=== PATIENT | male | born 1960 | race Caucasian/White ===

== ENCOUNTER 2016-09-22 09:15 | Outpatient (CLI) | payer BC ==
[2016-09-22 19:07] LABS: BASOPHILS # (AUTO) 0.1 10^3/uL (0.0-0.1); BASOPHILS % (AUTO) 1.3 %; EOSINOPHILS # (AUTO) 0.4 10^3/uL (0.0-0.7); HCT - HEMATOCRIT 46.4 % (42.0-52.0); HGB - HEMOGLOBIN 15.3 g/dL (14.0-18.0); LYMPHOCYTES # (AUTO) 3.4 10^3/uL (1.5-3.5); LYMPHOCYTES % (AUTO) 45.2 %; MEAN CORPUSCULAR HEMOGLOBIN 29.4 pg (27.0-31.0); MEAN CORPUSCULAR HGB CONC 32.9 g/dL (32.0-36.0); MEAN CORPUSCULAR VOLUME 89.5 fL (80.0-94.0); MEAN PLATELET VOLUME 7.8 fL (7.4-11.4); MONOCYTES # (AUTO) 0.5 10^3/uL (0.0-1.0); MONOCYTES % (AUTO) 7.1 %; NEUTROPHILS # (AUTO) 3.1 10^3/uL (1.5-6.6); NEUTROPHILS % (AUTO) 41.4 %; NUCLEATED RED BLOOD CELLS AUTO 0.1 /100WBC; RED BLOOD COUNT 5.18 10^6/uL (4.70-6.10); RED CELL DISTRIBUTION WIDTH 13.6 % (12.0-15.0); UNCORRECTED WHITE BLOOD COUNT 7.5 x10^3/uL; WHITE BLOOD COUNT 7.5 x10^3/uL (4.8-10.8)
[2016-09-22 19:17] LABS: ALBUMIN/GLOBULIN RATIO 1.6 (1.0-2.2); BILIRUBIN,TOTAL 0.9 mg/dL (0.2-1.0); BUN - BLOOD UREA NITROGEN 21 mg/dL (6-20); CALCIUM 9.5 mg/dL (8.5-10.3); CARBON DIOXIDE - CO2 27 mmol/L (21-32); CHLORIDE 103 mmol/L (101-111); CHOL/HDL RATIO 3.6 (<5.0); CHOLESTEROL 182 mg/dL; GFR - MDRD 78 (>89); GLUCOSE 122 mg/dL (70-100); HDL CHOLESTEROL 51 mg/dL; LDL/HDL RATIO 2.2 (<3.6); POTASSIUM 4.6 mmol/L (3.5-5.0); SODIUM 137 mmol/L (135-145); TOTAL PROTEIN 7.6 g/dL (6.7-8.2); TRIGLYCERIDES 87 mg/dL; VLDL CHOLESTEROL 17 mg/dL
[2016-09-22 20:02] LABS: HEMOGLOBIN A1C 0.79 g/dL
== END 2016-09-22 09:16 | disposition home or self-care (01) ==
LOC: LAB.F 09:15
PROVIDERS: ATTEND Physician Assistant Medical
DX: I10 Essential (primary) hypertension (principal); Z13.89 Encounter for screening for other disorder; E55.9 Vitamin D deficiency, unspecified; E11.9 Type 2 diabetes mellitus without complications
CPT/HCPCS: 36415; 80053; 80061; 82306; 83036; 85025

== ENCOUNTER 2016-12-02 06:03 | Day surgery (SDC) | payer BC ==
[2016-12-02] MEDS ORDERED: LACTATED RINGERS 1,000 ML IV ONE (06:47)
[2016-12-02] MEDS ORDERED: MIDAZOLAM 2 MG/2 ML VIAL IVP ONE (07:38)
[2016-12-02] MEDS ORDERED: fentaNYL 100 MCG/2 ML VIAL IVP ONE (07:38)
[2016-12-02 08:39] VITALS: BP 105/70
== END 2016-12-02 06:04 | disposition home or self-care (01) ==
LOC: SDS 06:03
PROVIDERS: ATTEND Surgery
PROC: 0DJD8ZZ Inspection of Lower Intestinal Tract, Via Natural or Artificial Opening Endoscopic (ICD-10-PCS; principal; 2016-12-02 07:30)
DX: Z86.010 Personal history of colon polyps (principal); I10 Essential (primary) hypertension; E11.9 Type 2 diabetes mellitus without complications; F41.9 Anxiety disorder, unspecified; Z79.82 Long term (current) use of aspirin; Z79.84 Long term (current) use of oral hypoglycemic drugs
CPT/HCPCS: 45378; J7120

== ENCOUNTER 2017-10-21 08:08 | Outpatient (CLI) | payer BC ==
[2017-10-21 10:35] LABS: HGB - HEMOGLOBIN 15.6 g/dL (14.0-18.0); MEAN CORPUSCULAR HGB CONC 34.2 g/dL (32.0-36.0); MEAN CORPUSCULAR VOLUME 87.9 fL (80.0-94.0); MEAN PLATELET VOLUME 7.8 fL (7.4-11.4); RED BLOOD COUNT 5.21 10^6/uL (4.70-6.10); RED CELL DISTRIBUTION WIDTH 13.6 % (12.0-15.0); WHITE BLOOD COUNT 8.2 x10^3/uL (4.8-10.8)
[2017-10-21 10:53] LABS: ALBUMIN 4.3 g/dL (3.2-5.5); ALBUMIN/GLOBULIN RATIO 1.4 (1.0-2.2); ALKALINE PHOSPHATASE 44 IU/L (42-121); ALT ALANINE AMINOTRANSFERASE 23 IU/L (10-60); AST ASPARTATE AMINOTRANSFERASE 24 IU/L (10-42); BILIRUBIN,TOTAL 0.7 mg/dL (0.2-1.0); BUN - BLOOD UREA NITROGEN 25 mg/dL (6-20); CALCIUM 9.2 mg/dL (8.5-10.3); CARBON DIOXIDE - CO2 25 mmol/L (21-32); CHLORIDE 103 mmol/L (101-111); CHOL/HDL RATIO 3.9 (<5.0); CHOLESTEROL 188 mg/dL; CREATININE 1.2 mg/dL (0.6-1.2); GFR - MDRD 63 (>89); GLUCOSE 148 mg/dL (70-100); HDL CHOLESTEROL 48 mg/dL; LDL CHOLESTEROL,CALCULATED 106 mg/dL; LDL/HDL RATIO 2.2 (<3.6); SODIUM 136 mmol/L (135-145); TOTAL PROTEIN 7.4 g/dL (6.7-8.2); VLDL CHOLESTEROL 34 mg/dL
[2017-10-21 11:03] LABS: HEMOGLOBIN A1C 0.92 g/dL; HEMOGLOBIN A1C % 7.1 % (4.6-6.2)
== END 2017-10-21 08:09 | disposition home or self-care (01) ==
LOC: LAB.F 08:08
PROVIDERS: ATTEND Physician Assistant Medical
DX: I10 Essential (primary) hypertension (principal); Z13.89 Encounter for screening for other disorder; E11.9 Type 2 diabetes mellitus without complications; Z12.5 Encounter for screening for malignant neoplasm of prostate
CPT/HCPCS: 36415; 80053; 80061; 82043; 83036; 83721; 84153; 85025; 85027

== ENCOUNTER 2020-07-01 12:51 | Emergency (ER) | payer BC ==
[2020-07-01 13:13] VITALS: BP 146/82
[2020-07-01] MEDS ORDERED: SULFAMETH/TRIMETH DS 800/160 MG TABLET PO STA (13:23)
[2020-07-01] MEDS ORDERED: cephALEXin 250 MG CAPSULE PO STA (13:23)
--- NOTE | 2020-07-01 13:26 | ED Physician Documentation ---
PD HPI WOUND RECHECK - Stated complaint Stated Complaint: SPIDER BITE RT HAND - Chief complaint Chief Complaint: Wound - Histroy obtained from History obtained from: Patient - Additional information Additional information: About 3 nights ago he was awoken in the middle of the night with a burning pain to the right hand which she presumed was a spider bite although no spider was seen. Since then he has had progressive albeit still not too bad pain with some mild myalgias and some spreading redness up towards the wrist. He has a couple of other lesions on that hand which she ascribes to minor trauma. Review of Systems Constitutional: reports: Chills. denies: Fever Respiratory: reports: Reviewed and negative GI: reports: Reviewed and negative : reports: Reviewed and negative PD PAST MEDICAL HISTORY - Past Medical History Cardiovascular: Hypertension Respiratory: None Endocrine/Autoimmune: Type 2 diabetes GI: Colon polyps : None HEENT: Chronic vision loss Psych: Anxiety Musculoskeletal: None Derm: None - Past Surgical History General: Colonoscopy HEENT: Other - Present Medications Home Medications: Ambulatory Orders Medication Instructions Recorded Confirmed Aspirin 81 mg PO DAILY 10/12/15 12/02/16 Lisinopril 20 mg PO DAILY 10/12/15 12/02/16 [id number] CD [Cardizem Cd] 180 mg PO DAILY 10/12/15 12/02/16 Metformin HCl 1,000 mg PO BID 12/01/16 12/02/16 Multivitamin [Multiple Vitamins] 1 each PO DAILY 12/01/16 12/02/16 Mupirocin 2% Oint [Bactroban 2% 1 applic TOP BID #50 gm 07/01/20 Oint] Sulfamethox/Trimeth 800/160 1 each PO BID #14 tablet 07/01/20 [Bactrim Ds 800/160] cephALEXin [Keflex] 500 mg PO Q6H #28 cap 07/01/20 - Allergies Allergies/Adverse Reactions: Allergies Allergy/AdvReac Type Severity Reaction Status Date / Time codeine Allergy Unknown Verified 07/01/20 13:13 - Social History Smoking Status: Never smoker PD ED PE NORMAL - Vitals Vital signs reviewed: Yes - General General: Alert and oriented X 3, No acute distress - Neuro Neuro: Alert and oriented X 3, Normal speech - Psych Psych: Normal mood, Normal affect PD ED PE EXPANDED - Extremities BRITTANY UE/Hands Visual: 1 - abscess (Purulent open wound, small, cultured) 2 - rash (nonpurulent v small ulcer) 3 - rash (dime-sized ulcer, not purulent) 4 - rash (rodney sized ulcer, not purulent) Results - Vitals Vitals: Vital Signs - 24 hr 07/01/20 13:09 Temperature 37.4 C Heart Rate 109 H Respiratory 16 Rate Blood Pressure 146/82 H O2 Saturation 99 Oxygen O2 Source Room air Departure - Departure Disposition: Home, Self Care Clinical Impression: Skin infection, bacterial Condition: Good Record reviewed to determine appropriate education?: Yes Instructions: ED Infec Skin Cellulitis Prescriptions: Sulfamethox/Trimeth 800/160 [Bactrim Ds 800/160] 1 each PO BID #14 tablet Mupirocin 2% Oint [Bactroban 2% Oint] 1 applic TOP BID #50 gm cephALEXin [Keflex] 500 mg PO Q6H #28 cap Comments: We are performing a wound culture, the results should be done in 48-72 hours. If antibiotic change is necessary we will call you. Return if worse in the meantime, especially if you develop increased pain, fevers, cannot keep down the medication. Otherwise follow-up with your physician in approximately 2-3 days.
== END 2020-07-01 13:43 | disposition home or self-care (01) ==
LOC: ED 12:51
DX: L08.9 Local infection of the skin and subcutaneous tissue, unspecified (principal); B96.89 Other specified bacterial agents as the cause of diseases classified elsewhere; I10 Essential (primary) hypertension; E11.9 Type 2 diabetes mellitus without complications; Z79.84 Long term (current) use of oral hypoglycemic drugs
CPT/HCPCS: 87070; 87077; 87181; 87205; 99283; A9270

== ENCOUNTER 2021-07-21 13:07 | Emergency (ER) | payer BC ==
[2021-07-21] MEDS ORDERED: SODIUM CHLORIDE 0.9% 1,000 ML IV STA (13:21)
[2021-07-21] MEDS ORDERED: INSULIN REGULAR HUMAN 100 UNIT in SODIUM CHLORIDE 0.9% 100ML 99 ML IV STA (13:21)
[2021-07-21] MEDS ORDERED: INSULIN REGULAR HUMAN 100 UNIT/1 ML 10 ML MDV IVP STA (13:22)
--- NOTE | 2021-07-21 13:24 | ED Physician Documentation ---
PD HPI ALTERED MENTAL STATUS - Stated complaint Stated Complaint: AMS - History obtained from History obtained from: Patient, Family - History of Present Illness Timing - onset: How many days ago (5) Timing - duration: Days (5) Timing - details: Gradual onset, Still present Quality / character: Less responsive, Confused, Disoriented, Agitated Associated symptoms: Dyspnea, General weakness Contributing factors: Diabetic Basline status: Alert and oriented X 3, Ambulatory, Independent Similar symptoms before: Has not had sx before Recently seen: Not recently seen - Additional information Additional information: 61-year-old Elijah Carrier is a type II diabetic male who was brought to the hospital by his father with altered mental status. The father states that 5 days ago he began to have a decreased interaction. He has been drinking lots of fluids he has not had anything to eat. He has become less responsive and he has been breathing hard. The father was concerned about the possibility of COVID. He and his son are unimmunized. The patient is unable to contribute much to the history. Review of Systems Unable to obtain: AMS, Confused Constitutional: denies: Fever Respiratory: reports: Dyspnea GI: denies: Vomiting PD PAST MEDICAL HISTORY - Past Medical History Cardiovascular: Hypertension Respiratory: None Endocrine/Autoimmune: Type 2 diabetes GI: Colon polyps : None HEENT: Chronic vision loss Psych: Anxiety Musculoskeletal: None Derm: None - Past Surgical History General: Colonoscopy HEENT: Other - Present Medications Home Medications: Ambulatory Orders Medication Instructions Recorded Confirmed Aspirin 81 mg PO DAILY 10/12/15 12/02/16 Lisinopril 20 mg PO DAILY 10/12/15 12/02/16 [id number] CD [Cardizem Cd] 180 mg PO DAILY 10/12/15 12/02/16 Metformin HCl 1,000 mg PO BID 12/01/16 12/02/16 Multivitamin [Multiple Vitamins] 1 each PO DAILY 12/01/16 12/02/16 Mupirocin 2% Oint [Bactroban 2% 1 applic TOP BID #50 gm 07/01/20 Oint] Sulfamethox/Trimeth 800/160 1 each PO BID #14 tablet 07/01/20 [Bactrim Ds 800/160] cephALEXin [Keflex] 500 mg PO Q6H #28 cap 07/01/20 - Allergies Allergies/Adverse Reactions: Allergies Allergy/AdvReac Type Severity Reaction Status Date / Time codeine Allergy Unknown Verified 07/21/21 13:26 - Social History Smoking Status: Never smoker PD ED PE NORMAL - Vitals Vital signs reviewed: Yes (tachy, tachypneic hypertensive and cold) - General General: Other (pale appearing 61 y/o M laying supine breathing heavily with lid ptosis bilat. 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, No motor deficit, No sensory deficit, Other (dysarthric speech secondary to dry mucous membranes ) Eye Opening: To Voice Motor: Obeys Commands Verbal: Confused GCS Score: 13 Results - Vitals Vitals: Vital Signs - 24 hr 07/21/21 07/21/21 07/21/21 13:23 13:56 14:26 Temperature Heart Rate 149 H 126 H 88 Respiratory 26 H 13 28 H Rate Blood Pressure 165/77 H 151/77 H 97/55 L O2 Saturation 100 100 100 07/21/21 07/21/21 07/21/21 14:30 15:00 16:00 Temperature 34.5 C L 34.7 C L Heart Rate 95 105 H 119 H Respiratory 18 28 H 25 H Rate Blood Pressure 106/63 106/63 102/56 L O2 Saturation 100 100 100 07/21/21 16:30 Temperature 34.6 C L Heart Rate 110 H Respiratory 28 H Rate Blood Pressure 106/58 L O2 Saturation 98 Oxygen O2 Source Room air - EKG (time done) 1324 Rate: Rate (enter#) (149) Rhythm: Atrial flutter Ischemia: Other (diffuse abnormal T) Compare to prior EKG: Old EKG unavailable Computer interpretation: Agree with computer - Labs Labs: Laboratory Tests 07/21/21 07/21/21 07/21/21 13:15 13:15 13:15 WBC 22.7 H RBC 5.39 Hgb 16.2 Hct 52.3 H MCV 97.0 H MCH 30.1 MCHC 31.0 L RDW 13.1 Plt Count 351 MPV 9.5 Neut # (Auto) 17.3 H Lymph # (Auto) 1.3 L [place] # (Auto) 2.7 H Eos # (Auto) 0.0 Baso # (Auto) 0.1 Absolute Nucleated RBC 0.00 Nucleated RBC % 0.0 Manual Slide Review Indicated RBC Morph Micro Appear 1+ ANISOCYTOSIS VBG pH VBG pCO2 VBG pO2 VBG HCO3 VBG Total CO2 VBG O2 Saturation VBG Base Excess Sodium 129 L Potassium 2.9 L Chloride 94 L Carbon Dioxide < 6 L* Anion Gap 29.0 H BUN 57 H Creatinine 2.3 H Estimated GFR (MDRD) 29 L Glucose 1106 H* Lactic Acid 5.6 H* Calcium 10.6 H Total Bilirubin 1.7 H AST 21 ALT 23 Alkaline Phosphatase 127 H Total Protein 8.3 H Albumin 3.9 Globulin 4.4 H Albumin/Globulin Ratio 0.9 L Lipase 64 H Urine Color Urine Clarity Urine pH Ur Specific [place] Urine Protein Urine Glucose (UA) Urine Ketones Urine Occult Blood Urine Nitrite Urine Bilirubin Urine Urobilinogen Ur Leukocyte Esterase Urine RBC Urine WBC Ur Squamous Epith Cells Urine Bacteria Urine Casts Ur Microscopic Review Urine Culture Comments Nasal Adenovirus (PCR) Nasal B. parapertussis DNA (PCR) Nasal Coronavir 229E PCR Nasal Coronavir HKU1 PCR Nasal Coronavir NL63 PCR Nasal Coronavir OC43 PCR Nasal Enterovir/Rhinovir PCR Nasal Influenza B PCR Nasal Influenza A PCR Nasal Parainfluen 1 PCR Nasal Parainfluen 2 PCR Nasal Parainfluen 3 PCR Nasal Parainfluen 4 PCR Nasal RSV (PCR) Nasal B.pertussis DNA PCR Nasal C.pneumoniae (PCR) He Human Metapneumo PCR Nasal M.pneumoniae (PCR) Nasal SARS-CoV-2 (PCR) Urine Opiates Screen Ur Oxycodone Screen Urine Methadone Screen Ur Propoxyphene Screen Ur Barbiturates Screen Ur Tricyclics Screen Ur Phencyclidine Scrn Ur Amphetamine Screen U Methamphetamines Scrn U Benzodiazepines Scrn Urine Cocaine Screen U Cannabinoids Screen Serum Ketones SMALL H 07/21/21 07/21/21 07/21/21 13:15 13:15 14:35 WBC RBC Hgb Hct MCV MCH MCHC RDW Plt Count MPV Neut # (Auto) Lymph # (Auto) [place] # (Auto) Eos # (Auto) Baso # (Auto) Absolute Nucleated RBC Nucleated RBC % Manual Slide Review RBC Morph Micro Appear VBG pH 6.778 L VBG pCO2 21.1 L VBG pO2 60.9 H VBG HCO3 3.1 L VBG Total CO2 3.7 L VBG O2 Saturation 86.1 H VBG Base Excess -31.8 L Sodium Potassium Chloride Carbon Dioxide Anion Gap BUN Creatinine Estimated GFR (MDRD) Glucose Lactic Acid Calcium Total Bilirubin AST ALT Alkaline Phosphatase Total Protein Albumin Globulin Albumin/Globulin Ratio Lipase Urine Color YELLOW Urine Clarity HAZY Urine pH 5.5 Ur Specific [place] 1.020 Urine Protein 30 H Urine Glucose (UA) >=1000 H Urine Ketones 40 H Urine Occult Blood MODERATE H Urine Nitrite NEGATIVE Urine Bilirubin NEGATIVE Urine Urobilinogen 0.2 (NORMAL) Ur Leukocyte Esterase NEGATIVE Urine RBC 6-10 H Urine WBC 0-3 Ur Squamous Epith Cells RARE Squamous Urine Bacteria Rare Urine Casts 6-10 Granular Casts Ur Microscopic Review INDICATED Urine Culture Comments NOT INDICATED Nasal Adenovirus (PCR) NOT DETECTED Nasal B. parapertussis DNA (PCR) NOT DETECTED Nasal Coronavir 229E PCR NOT DETECTED Nasal Coronavir HKU1 PCR NOT DETECTED Nasal Coronavir NL63 PCR NOT DETECTED Nasal Coronavir OC43 PCR NOT DETECTED Nasal Enterovir/Rhinovir PCR NOT DETECTED Nasal Influenza B PCR NOT DETECTED Nasal Influenza A PCR NOT DETECTED Nasal Parainfluen 1 PCR NOT DETECTED Nasal Parainfluen 2 PCR NOT DETECTED Nasal Parainfluen 3 PCR NOT DETECTED Nasal Parainfluen 4 PCR NOT DETECTED Nasal RSV (PCR) NOT DETECTED Nasal B.pertussis DNA PCR NOT DETECTED Nasal C.pneumoniae (PCR) NOT DETECTED He Human Metapneumo PCR NOT DETECTED Nasal M.pneumoniae (PCR) NOT DETECTED Nasal SARS-CoV-2 (PCR) DETECTED A Urine Opiates Screen NEGATIVE Ur Oxycodone Screen NEGATIVE Urine Methadone Screen NEGATIVE Ur Propoxyphene Screen NEGATIVE Ur Barbiturates Screen NEGATIVE Ur Tricyclics Screen NEGATIVE Ur Phencyclidine Scrn NEGATIVE Ur Amphetamine Screen NEGATIVE U Methamphetamines Scrn NEGATIVE U Benzodiazepines Scrn NEGATIVE Urine Cocaine Screen NEGATIVE U Cannabinoids Screen NEGATIVE Serum Ketones 07/21/21 16:08 WBC RBC Hgb Hct MCV MCH MCHC RDW Plt Count MPV Neut # (Auto) Lymph # (Auto) [place] # (Auto) Eos # (Auto) Baso # (Auto) Absolute Nucleated RBC Nucleated RBC % Manual Slide Review RBC Morph Micro Appear VBG pH VBG pCO2 VBG pO2 VBG HCO3 VBG Total CO2 VBG O2 Saturation VBG Base Excess Sodium 128 L Potassium 1.5 L* Chloride 102 Carbon Dioxide < 6 L* Anion Gap 22.0 H BUN 56 H Creatinine 2.2 H Estimated GFR (MDRD) 31 L Glucose 1078 H* Lactic Acid Calcium 9.2 Total Bilirubin AST ALT Alkaline Phosphatase Total Protein Albumin Globulin Albumin/Globulin Ratio Lipase Urine Color Urine Clarity Urine pH Ur Specific [place] Urine Protein Urine Glucose (UA) Urine Ketones Urine Occult Blood Urine Nitrite Urine Bilirubin Urine Urobilinogen Ur Leukocyte Esterase Urine RBC Urine WBC Ur Squamous Epith Cells Urine Bacteria Urine Casts Ur Microscopic Review Urine Culture Comments Nasal Adenovirus (PCR) Nasal B. parapertussis DNA (PCR) Nasal Coronavir 229E PCR Nasal Coronavir HKU1 PCR Nasal Coronavir NL63 PCR Nasal Coronavir OC43 PCR Nasal Enterovir/Rhinovir PCR Nasal Influenza B PCR Nasal Influenza A PCR Nasal Parainfluen 1 PCR Nasal Parainfluen 2 PCR Nasal Parainfluen 3 PCR Nasal Parainfluen 4 PCR Nasal RSV (PCR) Nasal B.pertussis DNA PCR Nasal C.pneumoniae (PCR) He Human Metapneumo PCR Nasal M.pneumoniae (PCR) Nasal SARS-CoV-2 (PCR) Urine Opiates Screen Ur Oxycodone Screen Urine Methadone Screen Ur Propoxyphene Screen Ur Barbiturates Screen Ur Tricyclics Screen Ur Phencyclidine Scrn Ur Amphetamine Screen U Methamphetamines Scrn U Benzodiazepines Scrn Urine Cocaine Screen U Cannabinoids Screen Serum Ketones - Rads (name of study) chest Radiology: Prelim report reviewed (Impression portable chest within normal limits for age.), EMP read indepedently (On my read this patient who is significantly dehydrated appears to have bilateral interstitial infiltrate consistent with COVID and a right lower lobe infiltrate consistent with COVID- related pneumonia.), See rad report CT head Radiology: Prelim report reviewed (Impression: Unremarkable intracranial for age, without a cause of altered mental status identified.), EMP read indepedently, See rad report Procedures - IVC sono (time) 1330 Bedside IVC sono: IVC measures (cm) (0.86), IVC collapsed c insp (cm) (complete), Dehydration (est >2 liter deficit) PD MEDICAL DECISION MAKING - ED course Complexity details: reviewed old records, reviewed results, re-evaluated patient, considered differential, d/w patient, d/w family, d/w wedding consultant (anesthesia consulted for line placement. ) ED course: 61-year-old male with history of diabetes arrives with kussmal breathing and altered mental status is found to have diabetic ketoacidosis. IV saline is initiated a insulin drip is started at 4 units an hour after a 10 unit bolus. Volume is depleted at least 2 liters on interrogation of the IVC. The patient has aflutter with a rate of 160. After 1 L of saline is in the patient still has heart rate in the 160 range with atrial flutter. He is administered diltiazem 20 mg intravenously reduces his heart rate to right around 120 and he is subsequently administered a second dose of diltiazem 25 mg further lowering his heart rate. We do not have intensive care unit beds here today and we are searching for a hospital with an available intensive care bed for a diabetic with ketoacidosis and COVID. With the patient's cardiac irritability an infusion of a banana bag with magnesium is administered as well as a second line with intravenous potassium and a esqueda catheter. The anesthesiologist is consulted in the case for central line placement. He is cold to 34.5 and a bear hugger is placed. No bed available here, no bed available at local area hospitals. We were able to consult our friends at [facility] in [place] and they were able to come up with an intensive care unit bed. I was able to speak to Miranda Haque who recommended that we place a bicarb drip in 1 arm and saline with 20 units of potassium in the other arm for transport. The patient's potassium is now critically low at 1.5 and he is administered intravenous potassium through his central line by life flight crew. - Critical Care Time(min): 50 Time Includes: Direct patient care, Review records, Reassess patient, Document care, Coordinate care, Medical consult, Family consult for tx feb Data interpretation: Labs, ABG, CXR Procedures excluded from critical care time: EKG Departure - Departure Disposition: 02 Transfer Acute Care Hosp Clinical Impression: Atrial flutter with rapid ventricular response, COVID Diabetic keto-acidosis Qualifiers: Diabetes mellitus type: type 2 Diabetes mellitus complication detail: without coma Qualified Code(s): E11.10 - Type 2 diabetes mellitus with ketoacidosis without coma Condition: Critical Discharge Date/Time: 07/21/21 16:50
[2021-07-21 13:31] LABS: VBG BASE EXCESS -31.8 mmol/L (-2 - +2); VBG HCO3 3.1 mmol/L (23-28); VBG OXYGEN SATURATION 86.1 % (60-80); VBG PCO2 21.1 mmHg (41-51); VBG PH 6.778 (7.31-7.41); VBG PO2 60.9 mmHg (25-47); VBG TOTAL CO2 3.7 mmol/L (24-29)
[2021-07-21 13:34] LABS: BASOPHILS # (AUTO) 0.1 10^3/uL (0.0-0.1); BASOPHILS % (AUTO) 0.6 %; EOSINOPHILS % (AUTO) 0.1 %; HCT - HEMATOCRIT 52.3 % (42.0-52.0); HGB - HEMOGLOBIN 16.2 g/dL (14.0-18.0); LYMPHOCYTES # (AUTO) 1.3 10^3/uL (1.5-3.5); LYMPHOCYTES % (AUTO) 5.9 %; MEAN CORPUSCULAR HEMOGLOBIN 30.1 pg (27.0-31.0); MEAN PLATELET VOLUME 9.5 fL (7.4-11.4); MONOCYTES # (AUTO) 2.7 10^3/uL (0.0-1.0); MONOCYTES % (AUTO) 11.8 %; NEUTROPHILS # (AUTO) 17.3 10^3/uL (1.5-6.6); NEUTROPHILS % (AUTO) 76.4 %; PLT - PLATELET COUNT 351 10^3/uL (130-450); RED BLOOD COUNT 5.39 10^6/uL (4.70-6.10); RED CELL DISTRIBUTION WIDTH 13.1 % (12.0-15.0); WHITE BLOOD COUNT 22.7 x10^3/uL (4.8-10.8)
[2021-07-21 13:38] LABS: SLIDE REVIEW? Indicated
[2021-07-21 13:39] LABS: KETONES, SERUM (ACETEST) SMALL (NEGATIVE)
[2021-07-21 13:53] LABS: ALBUMIN 3.9 g/dL (3.2-5.5); ALBUMIN/GLOBULIN RATIO 0.9 (1.0-2.2); ALKALINE PHOSPHATASE 127 IU/L (42-121); ALT ALANINE AMINOTRANSFERASE 23 IU/L (10-60); AST ASPARTATE AMINOTRANSFERASE 21 IU/L (10-42); BILIRUBIN,TOTAL 1.7 mg/dL (0.2-1.0); BUN - BLOOD UREA NITROGEN 57 mg/dL (6-20); CALCIUM 10.6 mg/dL (8.5-10.3); CHLORIDE 94 mmol/L (101-111); CREATININE 2.3 mg/dL (0.6-1.2); GFR - MDRD 29 (>89); LIPASE 64 U/L (22-51); POTASSIUM 2.9 mmol/L (3.5-5.0); SODIUM 129 mmol/L (135-145); TOTAL PROTEIN 8.3 g/dL (6.7-8.2)
[2021-07-21 13:55] LABS: CARBON DIOXIDE - CO2 < 6 mmol/L (21-32)
[2021-07-21 13:56] LABS: GLUCOSE 1106 mg/dL (70-100)
[2021-07-21 14:00] LABS: RBC MORPHOLOGY (MULTIPLE) 1+ ANISOCYTOSIS (NORMAL)
[2021-07-21] MEDS ORDERED: diltiaZEM INJ 5 MG/ML VIAL IVP STA ×2 (14:14→14:23)
[2021-07-21] MEDS ORDERED: THIAMINE INJ 100 MG, MAGNESIUM SULFATE 2 GM, MULTIVITAMIN 10 ML, FOLIC ACID INJ 1 MG in... IV ONE ×5 (14:20)
[2021-07-21] MEDS ORDERED: LIDOCAINE 2% URO-JET 5 ML SYRINGE UR STA (14:23)
[2021-07-21] MEDS ORDERED: POTASSIUM CHLOR 10 MEQ/100 ML 10 MEQ/100 ML BAG IV ONE (14:27)
[2021-07-21 14:40] LABS: B. PARAPERTUSSIS- RESP PCR PAN NOT DETECTED; B. PERTUSSIS- RESP PCR PANEL NOT DETECTED; C. PNEUMONIAE- RESP PCR PANEL NOT DETECTED; CORONAVIRUS 229E-RESP PCR NOT DETECTED; CORONAVIRUS HKU1-RESP PCR NOT DETECTED; CORONAVIRUS NL63-RESP PCR NOT DETECTED; CORONAVIRUS OC43-RESP PCR NOT DETECTED; HUMAN METAPNEUMOVIRUS NOT DETECTED; INFLUENZA A- RESP PCR PANEL NOT DETECTED; INFLUENZA B - RESP PCR PANEL NOT DETECTED; M. PNEUMONIAE- RESP PCR PANEL NOT DETECTED; PARAINFLUENZA VIRUS 1 NOT DETECTED; PARAINFLUENZA VIRUS 2 NOT DETECTED; PARAINFLUENZA VIRUS 3 NOT DETECTED; PARAINFLUENZA VIRUS 4 NOT DETECTED; RHINOVIRUS/ENTEROVIRUS NOT DETECTED; RSV- RESP PCR PANEL NOT DETECTED
[2021-07-21 14:43] LABS: SARS-CoV-2 -RESP PCR PANEL DETECTED
[2021-07-21 14:49] LABS: MUDS CUTOFF CONCENTRATIONS CUTOFF CONC BELOW:
[2021-07-21 14:52] LABS: BILIRUBIN,URINE NEGATIVE (NEGATIVE); GLUCOSE, URINE (UA) >=1000 mg/dL (NEGATIVE); KETONES,URINE (UA) 40 mg/dL (NEGATIVE); LEUKOCYTE ESTERASE, URINE NEGATIVE (NEGATIVE); NITRITE,URINE NEGATIVE (NEGATIVE); OCCULT BLOOD,URINE MODERATE (NEGATIVE); PH,URINE 5.5 PH (5.0-7.5); PROTEIN,URINE 30 mg/dL (NEGATIVE); UROBILINOGEN,URINE 0.2 (NORMAL) E.U./dL (NORMAL)
[2021-07-21 15:00] LABS: CLARITY,URINE HAZY (CLEAR)
[2021-07-21 15:03] LABS: THC CANNABINOID SCREEN, URINE NEGATIVE (NEGATIVE)
[2021-07-21 15:04] LABS: AMPHETAMINE SCREEN,URINE NEGATIVE (NEGATIVE); BARBITURATE SCREEN,UR NEGATIVE (NEGATIVE); BENZODIAZEPINES SCREEN, URINE NEGATIVE (NEGATIVE); COCAINE SCREEN URINE NEGATIVE (NEGATIVE); METHADONE SCREEN, URINE NEGATIVE (NEGATIVE); METHAMPHETAMINES SCREEN, URINE NEGATIVE (NEGATIVE); OPIATE SCREEN, URINE NEGATIVE (NEGATIVE); OXYCODONE SCREEN, URINE NEGATIVE (NEGATIVE); PROPOXYPHENE SCREEN, URINE NEGATIVE (NEGATIVE); TRICYCLIC ANTIDEPRESSANT,URINE NEGATIVE (NEGATIVE)
[2021-07-21] MEDS ORDERED: cefTRIAXone 1 GM in SODIUM CHLORIDE 0.9% MINIBAG 100 ML IV STA (15:10)
[2021-07-21 15:11] LABS: BACTERIA,URINE Rare /HPF (None Seen); SQUAMOUS EPITHELIAL CELL,UR RARE Squamous (<= Few); WBC,URINE 0-3 /HPF (0-3)
[2021-07-21 15:12] LABS: CASTS, URINE 6-10 Granular Casts /LPF
--- NOTE | 2021-07-21 15:45 | XRAY Report ---
PROCEDURE: Chest 1 View X-Ray INDICATIONS: chest pain TECHNIQUE: One view of the chest was acquired. COMPARISON: Correlation is made with the accompanying head CT, 07/21/2021. FINDINGS: Surgical changes and devices: None. Lungs and pleura: On the supine study, no large pneumothorax or large pleural effusions can be seen. No focal infiltrates are detected. Mediastinum: Mediastinal contours appear normal. Heart size is normal. Calcification is seen of th e aortic arch. Bones and chest wall: No suspicious bony lesions. Overlying soft tissues appear unremarkable. IMPRESSION: Portable chest within normal limits for age. Reviewed by: Chris Worley MD on 07/21/2021 2:43 PM CHELO Approved by: Chris Worley MD on 07/21/2021 2:43 PM CHELO Station ID: [id number]
--- NOTE | 2021-07-21 15:46 | CT Report ---
PROCEDURE: HEAD WO INDICATIONS: AMS TECHNIQUE: Noncontrast 4.5 mm thick angled axial sections acquired from the foramen magnum to the vertex. For r adiation dose reduction, the following was used: automated exposure control, adjustment of mA and/or kV according to patient size. COMPARISON: Correlation is made with the accompanying chest radiograph, 07/21/2021. FINDINGS: Image quality: Excellent. CSF spaces: Basal cisterns are patent. No extra-axial fluid collections. Ventricles are normal in size and shape. Brain: No midline shift. No intracranial masses or hemorrhage. Doty-white matter interface is norm al. Skull and face: Calvarium and visualized facial bones are intact, without suspicious lesions. Sinuses: Visualized sinuses and mastoids are clear. IMPRESSION: Unremarkable intracranial for age, without a cause of altered mental status identified. Reviewed by: Chris Worley MD on 07/21/2021 2:44 PM AKGERALDINE Approved by: Chris Worley MD on 07/21/2021 2:44 PM AKGERALDINE Station ID: [id number]
[2021-07-21] MEDS ORDERED: SODIUM BICARBONATE 100 MEQ in DEXTROSE 5% 1,000 ML IV STA (15:48)
[2021-07-21] MEDS ORDERED: POTASSIUM CHLORIDE INJ 20 MEQ in SODIUM CHLORIDE 0.9% 1,000 ML IV STA (15:49)
[2021-07-21] MEDS ORDERED: NS W/20 MEQ KCL 1,000 ML IV STA (16:02)
--- NOTE | 2021-07-21 16:18 | ANESTHESIA PROCEDURE NOTE ---
Anesth Central Line Template - Central Line Central Line Preparation: Unable to obtain consent (Patient critically ill and unable to give consent. Unable to contact next of kin. Due to critical illness, consent implied.), Time out completed, Ultrasound used Central line location: Right IJ Central line type: Triple lumen Central line catheter tip site resides: Superior vena cava (SVC) Central line aftercare: Chlorhexidine disc placed, Secured, Placement confirmed, No pneumothorax, No complications, Pt tolerated well Other Info/Details: Consulted by ED physician for placement of central line for critically ill patient with covid and DKA. Right neck area prepped with chloroprep, full sterile gown, gloves, mask, drape utilized. Right IJ identified under ultrasound and skin over right IJ localized with 3ml of 1% lidocaine. Right IJ accessed with 18G introducer needle and wire advanced with ease. A triple lumen central line was inserted over the wire, wire removed and all ports aspirate and flush with ease. Line sutured in place and secured with opsite. Chest xray shows tip at the cavoatrial junction.
[2021-07-21 16:23] LABS: BUN - BLOOD UREA NITROGEN 56 mg/dL (6-20); CALCIUM 9.2 mg/dL (8.5-10.3); CHLORIDE 102 mmol/L (101-111); CREATININE 2.2 mg/dL (0.6-1.2); GFR - MDRD 31 (>89); SODIUM 128 mmol/L (135-145)
[2021-07-21 16:27] LABS: POTASSIUM 1.5 mmol/L (3.5-5.0)
[2021-07-21 16:28] LABS: CARBON DIOXIDE - CO2 < 6 mmol/L (21-32); GLUCOSE 1078 mg/dL (70-100)
[2021-07-21 16:36] VITALS: BP 106/58
--- NOTE | 2021-07-21 16:46 | XRAY Report ---
PROCEDURE: Chest for Line Placement INDICATIONS: AMS. TECHNIQUE: One view of the chest was acquired. COMPARISON: 07/21/2021 FINDINGS: Surgical changes and devices: A right-sided central line has been placed, with the tip overlying the inferior aspect of the superior vena cava, 1 to 2 cm above the cavoatrial junction. Lungs and pleura: On the supine study, no large pneumothorax or large pleural effusions can be seen. No focal infiltrates are detected. Mediastinum: Mediastinal contours appear normal. Heart size is normal. Bones and chest wall: No suspicious bony lesions. Overlying soft tissues appear unremarkable. IMPRESSION: The tip of the right-sided central line can be seen overlying the inferior aspect of the superior araseli a cava. Reviewed by: Chris Worley MD on 07/21/2021 3:44 PM CHELO Approved by: Chris Worley MD on 07/21/2021 3:44 PM CHELO Station ID: [id number]
== END 2021-07-21 16:50 | disposition short-term general hospital (02) ==
LOC: ED 13:07
DX: U07.1 COVID-19 (principal); I48.92 Unspecified atrial flutter; E11.10 Type 2 diabetes mellitus with ketoacidosis without coma; Z79.84 Long term (current) use of oral hypoglycemic drugs; I10 Essential (primary) hypertension
CPT/HCPCS: 36415; 70450; 71045; 80048; 80053; 80306; 81001; 82009; 82803; 83605; 83690; 85025; 87040; 87633; 93005; 96361; 96365; 96366; 96368; 96375; 99285; 99291; J1815; J3411; 81003; 87086

== ENCOUNTER 2021-09-05 07:46 | Outpatient (CLI) | payer BC ==
[2021-09-05 15:16] LABS: CREATININE,URINE 162.9 mg/dL; MICROALBUM/CREATININE RATIO,UR 6.1 ug/mg (<30.0)
[2021-09-05 15:17] LABS: ALBUMIN 4.2 g/dL (3.2-5.5); ALBUMIN/GLOBULIN RATIO 1.3 (1.0-2.2); ALKALINE PHOSPHATASE 72 IU/L (42-121); ALT ALANINE AMINOTRANSFERASE 22 IU/L (10-60); AST ASPARTATE AMINOTRANSFERASE 25 IU/L (10-42); BILIRUBIN,TOTAL 0.4 mg/dL (0.2-1.0); BUN - BLOOD UREA NITROGEN 19 mg/dL (6-20); CALCIUM 9.6 mg/dL (8.5-10.3); CARBON DIOXIDE - CO2 28 mmol/L (21-32); CHLORIDE 104 mmol/L (101-111); CHOL/HDL RATIO 2.7 (<5.0); CHOLESTEROL 217 mg/dL; CREATININE 1.1 mg/dL (0.6-1.2); GFR - MDRD 69 (>89); GLUCOSE 143 mg/dL (70-100); HDL CHOLESTEROL 80 mg/dL; LDL CHOLESTEROL,CALCULATED 119 mg/dL; LDL/HDL RATIO 1.5 (<3.6); POTASSIUM 4.3 mmol/L (3.5-5.0); SODIUM 141 mmol/L (135-145); TOTAL PROTEIN 7.5 g/dL (6.7-8.2); TRIGLYCERIDES 92 mg/dL; VLDL CHOLESTEROL 18 mg/dL
[2021-09-05 15:34] LABS: PSA TOTAL 0.48 ng/mL (0.000-2.000)
[2021-09-05 20:41] LABS: ESTIMATED AVERAGE GLUCOSE 255 mg/dL (70-100); HEMOGLOBIN A1c% 10.5 % (4.27-6.07)
[2021-09-06 06:09] LABS: HCV AB <0.1 s/co ratio (0.0-0.9)
== END 2021-09-05 07:47 | disposition home or self-care (01) ==
LOC: LAB.S 07:46
PROVIDERS: ATTEND Nurse Practitioner Family
DX: E11.9 Type 2 diabetes mellitus without complications (principal); Z13.220 Encounter for screening for lipoid disorders; Z11.59 Encounter for screening for other viral diseases; Z12.5 Encounter for screening for malignant neoplasm of prostate
CPT/HCPCS: 36415; 80053; 80061; 82043; 82570; 83036; 83721; 84153; 86803

== ENCOUNTER 2021-11-07 13:41 | Outpatient (CLI) | payer BC ==
[2021-11-07 20:01] LABS: BILIRUBIN,URINE NEGATIVE (NEGATIVE); GLUCOSE, URINE (UA) NEGATIVE (NEGATIVE); KETONES,URINE (UA) NEGATIVE (NEGATIVE); LEUKOCYTE ESTERASE, URINE NEGATIVE (NEGATIVE); NITRITE,URINE NEGATIVE (NEGATIVE); OCCULT BLOOD,URINE NEGATIVE (NEGATIVE); PH,URINE 5.5 PH (5.0-7.5); PROTEIN,URINE NEGATIVE (NEGATIVE); UROBILINOGEN,URINE 0.2 (NORMAL) E.U./dL (NORMAL)
[2021-11-07 20:03] LABS: CALCIUM 9.6 mg/dL (8.5-10.3); POTASSIUM 4.1 mmol/L (3.5-5.0)
[2021-11-07 20:08] LABS: CLARITY,URINE CLEAR (CLEAR)
[2021-11-07 20:09] LABS: CREATININE,URINE 87.1 mg/dL; MICROALBUM/CREATININE RATIO,UR 3.4 ug/mg (<30.0); MICROALBUMIN,URINE 0.3 mg/dL (0-300.0)
== END 2021-11-07 13:42 | disposition home or self-care (01) ==
LOC: LAB.S 13:41
PROVIDERS: ATTEND Internal Medicine Nephrology
DX: N17.9 Acute kidney failure, unspecified (principal)
CPT/HCPCS: 36415; 80048; 81001; 81003; 81599; 82043; 82570; 82610

== ENCOUNTER 2022-10-08 08:03 | Outpatient (CLI) | payer BC ==
[2022-10-08 20:15] LABS: ESTIMATED AVERAGE GLUCOSE 157 mg/dL (70-100); HEMOGLOBIN A1c% 7.1 % (4.27-6.07)
== END 2022-10-08 08:04 | disposition home or self-care (01) ==
LOC: LAB.S 08:03
DX: Z01.812 Encounter for preprocedural laboratory examination (principal)
CPT/HCPCS: 36415; 83036